=== PATIENT | female | born 1960 | race Caucasian/White ===

== ENCOUNTER 2016-04-16 11:34 | Emergency (ER) | payer OTHER ==
[~2016-04-16 11:34] MED LIST: PHENERGAN EQUIV25 MG PO; PRILOSEC20 MG PO; TEGRETOL-XR100 MG PO; TRAMADOL HCL50 MG PO; VITAMIN B-1000 MCG/M IM; ZOFRAN ODT4 MG PO; [UNRECOGNIZED DRUG - MIXTURE]
--- NOTE | 2016-04-16 13:19 | DIAGNOSTIC IMAGING REPORT ---
PROCEDURE: CT HEAD WITHOUT CONTRAST INDICATION: HEADACHE TECHNIQUE: Axial CT images were acquired through the head. Coronal and sagittal reformations were created. COMPARISON: None. FINDINGS: No intracranial hemorrhage or extraaxial fluid collections. Ventricles are normal in size, shape and position. There is no mass, mass effect or midline shift. The hernadez-white matter differentiation is normal. There is no edema. The calvarium is intact. The paranasal sinuses and mastoid air cells are normally aerated. The extracranial soft tissues and orbits are normal. IMPRESSION: 1. No CT evidence of acute intracranial process. 2. Findings discussed with Semaj at 01:[address] scans at this facility use dose modulation, iterative reconstruction, and/or weight-based dosing when appropriate to reduce radiation dose to as low as reasonably achievable.
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
--- NOTE | 2016-04-16 15:11 | ED ORDER SUMMARY ---
..... Patient: RAMY THOMAS OrderSheet [facility] VisitID: [id number] [address] [place] [address] 55y, F Registration Date/Time: 04/16/2016 ORDER SHEET Weight: 63.5 kg Allergies: Aspirin, Benadryl, Biaxin, Codeine, CONTRAST DYE, Cymbalta, Demerol, Doxycycline, Ertapenem, Erythromycin, Gabapentin, Levaquin, Macrobid, morphine, Nitroglycerin, Oxycodone, Penicillins, Rocephin, Sulfa Antibiotics, Trimethoprim, Wellbutrin GENERAL ORDERS: CT Head wo Cont Urgent (12:45 04/16/2016 Mona ALVARADO) (Ack 12:54 LNations ER Tech1) CBC w Diff Urgent (:45 04/16/2016 Mona ALVARADO) (Ack 12:54 LNations ER Tech1) (14:25 EBonham) CRP Urgent (:45 04/16/2016 Mona ALVARADO) (Ack 12:54 LNations ER Tech1) (14:25 EBonham) ESR Urgent (12:45 04/16/2016 Mona ALVARADO) (Ack 12:54 LNations ER Tech1) (14:25 EBonham) MEDICATION ORDERS: IV FLUIDS: IV Saline Lock (:45 04/16/2016 Mona ALVARADO) (Ack 13:31 Nica Cordova) ORDER SHEET NOTES: [Electronically signed by Marga Pascual (15:27 04/16/2016)] [Electronically signed by Ladarius Cha MD (22:02 04/18/2016)] [Electronically locked/signed by Marga Pascual (15:27 04/16/2016)]
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
--- NOTE | 2016-04-16 15:11 | ED ORDER SUMMARY ---
..... Patient: RAMY THOMAS OrderSheet [facility] VisitID: [id number] [address] [place] [address] 55y, F Registration Date/Time: 04/16/2016 ORDER SHEET Weight: 63.5 kg Allergies: Aspirin, Benadryl, Biaxin, Codeine, CONTRAST DYE, Cymbalta, Demerol, Doxycycline, Ertapenem, Erythromycin, Gabapentin, Levaquin, Macrobid, morphine, Nitroglycerin, Oxycodone, Penicillins, Rocephin, Sulfa Antibiotics, Trimethoprim, Wellbutrin GENERAL ORDERS: CT Head wo Cont Urgent (12:45 04/16/2016 Mona ALVARADO) (Ack 12:54 LNations ER Tech1) CBC w Diff Urgent (:45 04/16/2016 Mona ALVARADO) (Ack 12:54 LNations ER Tech1) (14:25 EBonham) CRP Urgent (:45 04/16/2016 Mona ALVARADO) (Ack 12:54 LNations ER Tech1) (14:25 EBonham) ESR Urgent (12:45 04/16/2016 Mona ALVARADO) (Ack 12:54 LNations ER Tech1) (14:25 EBonham) MEDICATION ORDERS: IV FLUIDS: IV Saline Lock (:45 04/16/2016 Mona ALVARADO) (Ack 13:31 Nica Cordova) ORDER SHEET NOTES: [Electronically signed by Marga Pascual (15:27 04/16/2016)] [Electronically signed by Ladarius Cha MD (22:02 04/18/2016)] [Electronically locked/signed by Marga Pascual (15:27 04/16/2016)]
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
--- NOTE | 2016-04-18 22:02 | ED DISCHARGE INSTRUCTIONS ---
Patient: RAMY THOMAS General Instructions [facility] VisitID: [id number] [place] [address] 55y, F Registration Date/Time: 04/16/2016 Facial pain and MALDONADO. INSTRUCTIONS No strenuous activity. Rest. Warnings: Further evaluation is necessary. Prescription Medications: Hydrocodone/APAP 5mg/325mg: take 1 to 2 orally every 6 hours as needed for pain. Dispense fifteen (15). No refills. Flexeril 5 mg: take 1 orally every 8 hours as needed for pain. Dispense fifteen (15). No refills. Substitution is permissible. Follow-up: Follow up with your doctor in two days. Call for an appointment. Follow up with a neurologist. Call for the next available appointment. Understanding of the discharge instructions verbalized by patient. ADDITIONAL INFORMATION Cyclobenzaprine Hydrochloride Oral tablet What is this medicine? CYCLOBENZAPRINE (symanan ge) is a muscle relaxer. It is used to treat muscle pain, spasms, and stiffness. How should I use this medicine? Take this medicine by mouth with a glass of water. Follow the directions on the prescription label. If this medicine upsets your stomach, take it with food or milk. Take your medicine at regular intervals. Do not take it more often than directed. 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 Special care may be needed. What side effects may I notice from receiving this medicine? Side effects that you should report to your doctor or health ocular care technician as soon as possible: allergic reactions like skin rash, itching or hives, swelling of the face, lips, or tongue chest pain fast heartbeat hallucinations seizures vomiting Side effects that usually do not require medical attention (report to your doctor or health ocular care technician if they continue or are bothersome): headache What may interact with this medicine? Do not take this medicine with any of the following medications: cisapride droperidol flecainide grepafloxacin halofantrine levomethadyl MAOIs like Carbex, Eldepryl, Marplan, Nardil, and Parnate nilotinib pimozide probucol sertindole This medicine may also interact with the following medications: abarelix alcohol contrast dyes dolasetron guanethidine medicines for cancer medicines for depression, anxiety, or psychotic disturbances medicines to treat an irregular heartbeat medicines used for sleep or numbness during surgery or procedure methadone octreotide ondansetron palonosetron phenothiazines like chlorpromazine, mesoridazine, prochlorperazine, thioridazine some medicines for infection like alfuzosin, chloroquine, clarithromycin, levofloxacin, mefloquine, pentamidine, troleandomycin tramadol vardenafil What if I miss a dose? If you miss a dose, take it as soon as you can. If it is almost time for your next dose, take only that dose. Do not take double or extra doses. Where should I keep my medicine? Keep out of the reach of children. Store at room temperature between 15 and 30 degrees C (59 and 86 degrees F). Keep container tightly closed. Throw away any unused medicine after the expiration date. What should I tell my health care provider before I take this medicine? They need to know if you have any of these conditions: heart disease, irregular heartbeat, or previous heart attack liver disease thyroid problem an unusual or allergic reaction to cyclobenzaprine, tricyclic antidepressants, lactose, other medicines, foods, dyes, or preservatives or trying to get breast-feeding What should I watch for while using this medicine? Check with your doctor or health ocular care technician if your condition does not improve within 1 to 3 weeks. You may get drowsy or dizzy when you first start taking the medicine or change doses. Do not drive, use machinery, or do anything that may be dangerous until you know how the medicine affects you. Stand or sit up slowly. Your mouth may get dry. Drinking water, chewing sugarless gum, or sucking on hard candy may help. You have been given the following additional information: Cyclobenzaprine Hydrochloride Oral tablet No strenuous activity. Rest. (Electronically signed by Ladarius Cha MD 04/18/2016 22:02)
--- NOTE | 2016-04-18 22:02 | ED MAR SUMMARY ---
..... Medication Administration Record [facility] [address] [place] [place] [address] Patient: RAMY THOMAS Visit ID: [id number] 55y, F Weight: 63.5 kg Height/Length: 70 in BMI: 20.1 ALLERGIES: Aspirin, Benadryl, Biaxin, Codeine, CONTRAST DYE, Cymbalta, Demerol, Doxycycline, Ertapenem, Erythromycin, Gabapentin, Levaquin, Macrobid, morphine, Nitroglycerin, Oxycodone, Penicillins, Rocephin, Sulfa Antibiotics, Trimethoprim, Wellbutrin
--- NOTE | 2016-04-18 22:02 | ED MAR SUMMARY ---
..... Medication Administration Record [facility] [address] [place] [address] Patient: RAMY THOMAS Visit ID: [id number] 55y, F Weight: 63.5 kg Height/Length: 70 in BMI: 20.1 ALLERGIES: Aspirin, Benadryl, Biaxin, Codeine, CONTRAST DYE, Cymbalta, Demerol, Doxycycline, Ertapenem, Erythromycin, Gabapentin, Levaquin, Macrobid, morphine, Nitroglycerin, Oxycodone, Penicillins, Rocephin, Sulfa Antibiotics, Trimethoprim, Wellbutrin
--- NOTE | 2016-04-18 22:02 | ED DISCHARGE INSTRUCTIONS ---
Patient: RAMY THOMAS General Instructions [facility] VisitID: [id number] [place] [address] 55y, F Registration Date/Time: 04/16/2016 Facial pain and MALDONADO. INSTRUCTIONS No strenuous activity. Rest. Warnings: Further evaluation is necessary. Prescription Medications: Hydrocodone/APAP 5mg/325mg: take 1 to 2 orally every 6 hours as needed for pain. Dispense fifteen (15). No refills. Flexeril 5 mg: take 1 orally every 8 hours as needed for pain. Dispense fifteen (15). No refills. Substitution is permissible. Follow-up: Follow up with your doctor in two days. Call for an appointment. Follow up with a neurologist. Call for the next available appointment. Understanding of the discharge instructions verbalized by patient. ADDITIONAL INFORMATION Cyclobenzaprine Hydrochloride Oral tablet What is this medicine? CYCLOBENZAPRINE (symanan ge) is a muscle relaxer. It is used to treat muscle pain, spasms, and stiffness. How should I use this medicine? Take this medicine by mouth with a glass of water. Follow the directions on the prescription label. If this medicine upsets your stomach, take it with food or milk. Take your medicine at regular intervals. Do not take it more often than directed. Talk to your advertising copy writer regarding the use of this medicine in children. Special care may be needed. What side effects may I notice from receiving this medicine? Side effects that you should report to your doctor or health care connector as soon as possible: allergic reactions like skin rash, itching or hives, swelling of the face, lips, or tongue chest pain fast heartbeat hallucinations seizures vomiting Side effects that usually do not require medical attention (report to your doctor or health care connector if they continue or are bothersome): headache What may interact with this medicine? Do not take this medicine with any of the following medications: cisapride droperidol flecainide grepafloxacin halofantrine levomethadyl MAOIs like Carbex, Eldepryl, Marplan, Nardil, and Parnate nilotinib pimozide probucol sertindole This medicine may also interact with the following medications: abarelix alcohol contrast dyes dolasetron guanethidine medicines for cancer medicines for depression, anxiety, or psychotic disturbances medicines to treat an irregular heartbeat medicines used for sleep or numbness during surgery or procedure methadone octreotide ondansetron palonosetron phenothiazines like chlorpromazine, mesoridazine, prochlorperazine, thioridazine some medicines for infection like alfuzosin, chloroquine, clarithromycin, levofloxacin, mefloquine, pentamidine, troleandomycin tramadol vardenafil What if I miss a dose? If you miss a dose, take it as soon as you can. If it is almost time for your next dose, take only that dose. Do not take double or extra doses. Where should I keep my medicine? Keep out of the reach of children. Store at room temperature between 15 and 30 degrees C (59 and 86 degrees F). Keep container tightly closed. Throw away any unused medicine after the expiration date. What should I tell my health care provider before I take this medicine? They need to know if you have any of these conditions: heart disease, irregular heartbeat, or previous heart attack liver disease thyroid problem an unusual or allergic reaction to cyclobenzaprine, tricyclic antidepressants, lactose, other medicines, foods, dyes, or preservatives or trying to get breast-feeding What should I watch for while using this medicine? Check with your doctor or health care connector if your condition does not improve within 1 to 3 weeks. You may get drowsy or dizzy when you first start taking the medicine or change doses. Do not drive, use machinery, or do anything that may be dangerous until you know how the medicine affects you. Stand or sit up slowly. Your mouth may get dry. Drinking water, chewing sugarless gum, or sucking on hard candy may help. You have been given the following additional information: Cyclobenzaprine Hydrochloride Oral tablet No strenuous activity. Rest. (Electronically signed by Ladarius Cha MD 04/18/2016 22:02)
--- NOTE | 2016-04-18 22:02 | ED MED RECONCILIATION SUMMARY ---
Patient: RAMY THOMAS Medication Reconciliation Report [facility] VisitID: [id number] [place] [address] 55y, F Registration Date/Time: 04/16/2016 Weight: 63.5 kg Height/Length: 70 in. BMI: 20.1 ALLERGIES: Aspirin, Benadryl, Biaxin, Codeine, CONTRAST DYE, Cymbalta, Demerol, Doxycycline, Ertapenem, Erythromycin, Gabapentin, Levaquin, Macrobid, morphine, Nitroglycerin, Oxycodone, Penicillins, Rocephin, Sulfa Antibiotics, Trimethoprim, Wellbutrin The patient's Home Medications are listed below: NONE. The source(s) of the original Home Medication information: Not obtained. The following Medications were given to the patient in the Emergency Department: None. The following Medications were prescribed to the patient: Hydrocodone/APAP 5mg/325mg: take 1 to 2 orally every 6 hours as needed for pain. Dispense fifteen (15). No refills. -- Ladarius Cha MD Flexeril 5 mg: take 1 orally every 8 hours as needed for pain. Dispense fifteen (15). No refills. Substitution is permissible. -- Ladarius Cha MD
--- NOTE | 2016-04-18 22:02 | ED MED RECONCILIATION SUMMARY ---
Patient: RAMY THOMAS Medication Reconciliation Report [facility] VisitID: [id number] [place] [address] 55y, F Registration Date/Time: 04/16/2016 Weight: 63.5 kg Height/Length: 70 in. BMI: 20.1 ALLERGIES: Aspirin, Benadryl, Biaxin, Codeine, CONTRAST DYE, Cymbalta, Demerol, Doxycycline, Ertapenem, Erythromycin, Gabapentin, Levaquin, Macrobid, morphine, Nitroglycerin, Oxycodone, Penicillins, Rocephin, Sulfa Antibiotics, Trimethoprim, Wellbutrin The patient's Home Medications are listed below: NONE. The source(s) of the original Home Medication information: Not obtained. The following Medications were given to the patient in the Emergency Department: None. The following Medications were prescribed to the patient: Hydrocodone/APAP 5mg/325mg: take 1 to 2 orally every 6 hours as needed for pain. Dispense fifteen (15). No refills. -- Ladarius Cha MD Flexeril 5 mg: take 1 orally every 8 hours as needed for pain. Dispense fifteen (15). No refills. Substitution is permissible. -- Ladarius Cha MD
== END 2016-04-16 15:05 | disposition home or self-care (01) ==
LOC: ED SRH 11:34
DX: R51 Headache (principal); J44.9 Chronic obstructive pulmonary disease, unspecified; F17.210 Nicotine dependence, cigarettes, uncomplicated; Z88.8 Allergy status to other drugs, medicaments and biological substances; Z88.5 Allergy status to narcotic agent; Z88.0 Allergy status to penicillin; Z88.2 Allergy status to sulfonamides; Z88.1 Allergy status to other antibiotic agents
CPT/HCPCS: 81460; 90074; 91585; 95059; 95150